=== PATIENT | female | born 1965 | race Caucasian/White ===

== ENCOUNTER 2021-07-26 19:03 | Emergency (ER) | payer OTHER ==
[~2021-07-26] VITALS: Ht 154.9 cm; Wt 90.7 kg
[2021-07-26] MEDS ORDERED: ACETAMINOPHEN 500 MG TAB PO ONE (23:30)
[2021-07-27 00:16] VITALS: BP 121/94
== END 2021-07-26 23:52 | disposition home or self-care (01) ==
LOC: EDBD 19:03 → ER 19:09
DX: S06.0X9A Concussion with loss of consciousness of unspecified duration, initial encounter (principal); R07.89 Other chest pain; V43.62XA Car passenger injured in collision with other type car in traffic accident, initial encounter; Y93.89 Activity, other specified; Y92.410 Unspecified street and highway as the place of occurrence of the external cause; Y99.8 Other external cause status
CPT/HCPCS: 70450; 71045; 72125; 93005